=== PATIENT | male | born 1985 | race Caucasian/White ===

== ENCOUNTER 2023-03-22 17:11 | Emergency (ER) | payer SELFPAY ==
[~2023-03-22] VITALS: Ht 170.2 cm; Wt 82.0 kg
[2023-03-22 17:32] VITALS: TEMP 98.6; O2SAT 99
[2023-03-22 18:30] VITALS: BP 116/68; PULSE 89; RESP 19
[2023-03-22] MEDS ORDERED: IBUPROFEN 800MG TABLET PO ONE (18:30)
[2023-03-22] MEDS ORDERED: IBUPROFEN 400MG TABLET PO NR (19:15)
[2023-03-22] MEDS ORDERED: IBUP-2030 MT (20:03)
== END 2023-03-22 20:32 | disposition home or self-care (01) ==
LOC: ER 17:11
DX: S62.603A Fracture of unspecified phalanx of left middle finger, initial encounter for closed fracture (principal); S43.401A Unspecified sprain of right shoulder joint, initial encounter; W01.0XXA Fall on same level from slipping, tripping and stumbling without subsequent striking against object, initial encounter; Y93.89 Activity, other specified; Y92.89 Other specified places as the place of occurrence of the external cause; Y99.8 Other external cause status
CPT/HCPCS: 73030; 73140; 99284; A4565